=== PATIENT | female | born 2000 | race Hispanic/Latino ===

== ENCOUNTER 2024-07-22 17:21 | Emergency (ER) | payer OTHER, SELFPAY ==
[2024-07-22] VITALS (7 sets, daily range): BP systolic 90–95; BP diastolic 62–69; PULSE 81–120; RESP 16–20; TEMP 37–39.6; O2SAT 98–99; BMI 24.2
[2024-07-22] MEDS: Ondansetron 4 MG/2 ML Vial IV (18:11)
[2024-07-22] MEDS: Acetaminophen 500 MG Tablet 1000 MG PO (18:11)
[2024-07-22] MEDS: 0.9% Normal Saline (1000mL) 1,000 ML 999 ML IV (18:11)
[2024-07-22 18:22] LABS: Mucous, Urine 0 SEEN /hpf (<or=2+)
[2024-07-22 18:24] LABS: Absolute Lymphocyte Count 0.68 X10^3/uL (0.83-4.51); Absolute Neutrophil Count 9.3 X10^3/uL (2.0-7.7); Basophil# 0.02 X10^3/uL; Basophil% 0.2 % (0-1); Color, Urine Yellow (Yellow); Glucose, Dipstick Normal (Normal); Hematocrit 37.1 % (37-47); Hemoglobin 12.6 g/dL (12.0-15.0); Ketone-Dipstick Negative (Negative); Leukocyte Esterase-Dipstick 500 /ul (Negative); Lymphocyte # 0.68 X10^3/ul (0.83-4.51); Lymphocyte % 6.4 % (19-41); Mean Corpuscular Hgb 29.9 pg (27.0-32.0); Mean Corpuscular Volume 87.9 fL (81-99); Mean Platelet Vol. 12.2 fl (6.2-12.0); Monocyte# 0.63 X10^3/uL; Monocyte% 5.9 % (0-10); NRBC Flagged by Analyzer 0 % (0-5); Neutrophil # 9.32 X10^3/uL (2.7-7.7); Nitrite-Dipstick Positive (Negative); Occult Blood-Urine 250 /ul (Negative); Platelet Count 182 K/mm3 (150-450); Protein-Dipstick 100 mg/dl (Negative); RBC Distribution Width CV 12.5 % (11.6-14.6); RBC Distribution Width SD 40.1 fl (35.1-43.9); Red Blood Count 4.22 M/mm3 (4.2-5.4); Urine Bilirubin Dipstick Negative (Negative); Urine Clarity Cloudy (Clear); Urine Urobilinogen Normal (Normal); Urine pH 6.5 (5.0 - 8.0); White Blood Count 10.7 K/mm3 (4.4-11.0)
[2024-07-22 18:30] LABS: Internal QC Validated? YES +Cl - CLEAR BKGD; Pregnancy, Urine Negative Negative; Record Kit Lot#,Urine Preg 869294
[2024-07-22 18:32] LABS: Bacteria 3+ /hpf (None Seen); Squamous Epithelial Cells - UA 0-5 SEEN /hpf (5-10); White Blood Cells >100 SEEN /hpf (0-5)
[2024-07-22 18:33] LABS: Red Blood Cells-Urine 10-25 SEEN /hpf (0-5)
[2024-07-22 18:35] LABS: Transitional Epithelial - Ur 0-5 SEEN /hpf (0-5)
[2024-07-22 18:40] LABS: Lactic Acid 1.5 mmol/L (0.4-1.9)
[2024-07-22] MEDS: Ketorolac 15 MG/ML Vial IV (18:43)
[2024-07-22] MEDS: Ceftriaxone 1 GM/50 ML BAG IV (18:43)
[2024-07-22 18:45] LABS: AST(SGOT) 14 U/L (15-37); Alanine Aminotransfer ALT/SGPT 21 U/L (13-56); Albumin, Serum 3.7 g/dL (3.2-5.0); Alkaline Phosphatase 74 U/L (45-117); Anion Gap 7 (5-15); BUN 12 mg/dL (7-18); BUN/Creat Ratio 16.5 RATIO (10-20); Calcium,Total 8.8 mg/dL (8.5-10.1); Chloride 108 mmol/L (98-107); Creatinine, Serum 0.73 mg/dL (0.55-1.02); EST Glomerular Filtration Rate 105 mL/min (>60); Est Glom Filt Rate - Afr Amer 127 mL/min (>60); Estimated Creatinine Clearance 86.09 ml/min; Globulin 3.8 g/dL (2.2-4.2); Glucose 120 mg/dL (74-106); Lipase 26 U/L (13-75); Potassium 3.1 mmol/L (3.5-5.1); Protein, Total 7.5 g/dL (6.4-8.2); Sodium Level 138 mmol/L (136-145)
[2024-07-22] MEDS: Potassium Chloride Oral Tablet 20 MEQ 40 MEQ PO (20:41)
[2024-07-22] MEDS: Ciprofloxacin 500 MG Tablet PO (20:41)
== END 2024-07-22 20:49 | disposition home or self-care (01) ==
PROVIDERS: Nurse Practitioner; Emergency Provider Emergency Medicine; Visit Provider Emergency Medicine
DX: R06.02 Shortness of breath (principal); N12 Tubulo-interstitial nephritis, not specified as acute or chronic; R10.9 Unspecified abdominal pain; N39.0 Urinary tract infection, site not specified; Z79.3 Long term (current) use of hormonal contraceptives
CPT/HCPCS: 71046; 74177; 80053; 81001; 81025; 83605; 83690; 85025; 87040; 87077; 87086; 87088; 87186; 87631; 96361; 96365; 96375; 99284; J7030; Q9967; A4216; J2405